=== PATIENT | female | born 1930 | race Caucasian/White ===

== ENCOUNTER 2017-03-19 06:48 | Day surgery (SDC) | payer MEDICARE, OTHER ==
--- NOTE | 2017-03-13 09:47 | EKG REPORT ---
SEVERITY:- ABNORMAL ECG - SINUS RHYTHM LEFT VENTRICULAR HYPERTROPHY NONSPECIFIC T ABNORMALITIES, INFERIOR LEADS : Confirmed by: Lexy Hinson 13-Mar-2017 09:46:47
[2017-03-13 09:48] LABS: HEMATOCRIT 32.9 % (36.0-47.0); HGB HCT DIFFERENCE 0.1; MEAN CORPUSCULAR HEMOGLOBIN 27.9 pg (27.0-33.4); MEAN CORPUSCULAR HGB CONC 33.5 g/dL (32.0-36.0); MEAN CORPUSCULAR VOLUME 83 fl (80-97); RED BLOOD COUNT 3.95 10^6/uL (3.72-5.28); RED CELL DISTRIBUTION WIDTH 14.8 % (11.5-14.0); WHITE BLOOD COUNT 4.5 10^3/uL (4.0-10.5)
[2017-03-13 10:18] LABS: ANION GAP 13 (5-19); BLOOD UREA NITROGEN 16 mg/dL (7-20); CALCIUM 10.2 mg/dL (8.4-10.2); CARBON DIOXIDE 25 mmol/L (22-30); CHLORIDE 105 mmol/L (98-107); CREATININE RESULT 0.96 mg/dL (0.52-1.25); GLUCOSE 137 mg/dL (75-110); POTASSIUM 4.5 mmol/L (3.6-5.0); SODIUM 142.8 mmol/L (137-145)
[~2017-03-19 06:48] MED LIST: CEFAZOLIN 1 GM/D5W RTU 1 GM/50 ML RTUPB IV PRN; LIDOCAINE 0.5% INJ-PF (5 MG/ML) 50 ML SDV INJ PRN; LIDOCAINE 1%/EPINEPHRINE INJ 20 ML VIAL ONE; MICROFIBRILLAR COLLAGEN 1 GM PACK ONE; RINGERS SOLUTION,LACTATED 1,000 ML IV PRN
[2017-03-19] MEDS ORDERED: DEXAMETHASONE SOD PHOSPHATE INJ 4 MG/1 ML VIAL ONE (08:24)
[2017-03-19] MEDS ORDERED: ONDANSETRON HCL INJ/PF 4 MG/2 ML SDV ONE (08:24)
[2017-03-19] MEDS ORDERED: SUCCINYLCHOLINE CHLORIDE INJ 200 MG/10 ML VIAL ONE (08:24)
[2017-03-19] MEDS ORDERED: PROPOFOL INJ 200 MG/20 ML VIAL IV ONE (10:26)
[2017-03-19] MEDS ORDERED: ACETAMINOPHEN 100 ML IV ONE (10:26)
[2017-03-19] MEDS ORDERED: FENTANYL CITRATE INJ/PF 100 MCG/2 ML AMPUL ONE (10:26)
[2017-03-19] MEDS ORDERED: MIDAZOLAM 2 MG/2 ML INJ ONE (10:26)
[2017-03-19] MEDS ORDERED: FENTANYL CITRATE INJ/PF 100 MCG/2 ML AMPUL IV PRN ×3 (11:07)
[2017-03-19] MEDS ORDERED: DIPHENHYDRAMINE HCL 50 MG/ML VIAL IV PRN (11:07)
[2017-03-19] MEDS ORDERED: PROMETHAZINE HCL INJ 25 MG/1 ML VIAL IV PRN ×2 (11:07)
[2017-03-19] MEDS ORDERED: OXYCODONE-ACETAMINOPHEN 5-325 MG TABLET PO PRN ×3 (11:07→11:33)
[2017-03-19] MEDS ORDERED: MORPHINE SULFATE 10 MG/ML INJ IV PRN ×2 (11:07→11:31)
[2017-03-19] MEDS ORDERED: MEPERIDINE HCL/PF INJ 25 MG/1 ML DISP.SYRIN IV PRN (11:07)
--- NOTE | 2017-03-19 11:30 | PDOC DISCHARGE SUMMARY ---
Discharge Summary (SDC) - Discharge Final Diagnosis: right breast cancer Date of Surgery: 03/19/17 Discharge Date: 03/19/17 Condition: Good Treatment or Instructions: [facility] [address] [place] [id number] Care Instructions Following Your Partial Mastectomy Activities: Resume normal activities when you feel comfortable. It is best to remain as active as possible to speed your recovery. It is common to experience some fatigue after surgery and you may find that short naps are helpful. Avoid strenuous activity such as weight lifting, tennis, etc at your surgical site for two weeks. Perform gentle arm exercises daily and do not favor your operative arm to due increased risk of mobility issues postoperatively. No driving for 7 days after surgery. Do not drive if you are taking pain medication other than Tylenol or Ibuprofen. No swimming, tub baths or soaking in a hot tub for 4 weeks. There are no dietary restrictions. Do not smoke as this impairs wound healing. Surgical Site care: Remove your dressing 48 hours after surgery. Leave the white paper tapes underneath in place. You may shower after removing the dressing to include washing the wound with soap and water using your hands. Do not scrub the incision. Pat the area dry with a towel. You do not need to recover the wound although some patients find that they feel more comfortable using a light dressing for a few days to absorb any minimal drainage which may occur. Many patients also find that keeping a dressing around the drain exit site is helpful to absorb any drainage which may leak around the tubing. If you use a dressing in this manner change it at least every day. Do not use heating pad or apply an ice pack to the operative site. You may apply deodorant if you are careful to avoid getting it on the wound itself. Empty the bulbs attached to the drain every 12 hours and measure the fluid output separately from each drain. Please also strip each drain each time you empty it to prevent clogging. Keep a record of the output and bring this record with you each time you come to the office for postoperative care. A drain is ready to be removed when its output is 30 mL per 24 hours per drain for 2 consecutive drains. Please call the office to inform our staff that you need to come in for drain removal. Both drains do not need to be ready to be removed at the same time in order to come to the office. Medications: Take Motrin (ibuprofen) 600 mg to 800 mg every 8 hours around the clock. You may taper this medication as you experience less pain. Take narcotic pain control such as Tylenol #3 or Percocet one to tablets every six hours as needed for breakthrough pain. Do not take over the counter Tylenol if you are taking either Tylenol #3 or Percocet. Again, you can not drive while taking narcotic pain medication. Resume all of your normal prescription medications after your surgery unless instructed otherwise. You may experience constipation after surgery while taking pain medications. If using a narcotic on a regular basis, take a stool softener such as Colace twice a day. It is helpful to stay hydrated by drinking lots of fluids. Walking is also helpful and is good exercise after surgery. If you need extra help, use Milk of Magnesia according to the directions on the package. Follow-up: Call our office at to make a follow-up appointment in 10-14 days. Your doctor will call to discuss the pathology report with you as soon as it is available. Concerns: If you had a sentinel lymph node biopsy with your mastectomy, your urine may have a greenish discoloration. This is normal as the blue dye slowly leaves your system. If you notice significant leakage around the drains, this is not normal. The drains may be clogged. Please call our office to come in immediately for the drains to be checked. Some bruising may occur and will go away over time. If you have a fever of 101.5 or greater, chills, redness at the incision site, excessive drainage from your wound or severe pain not relieved by pain medication, call your doctor. A physician is available 24 hours a day 7 days a week in addition to regular office hours. If problems arise after normal office hours please call the hospital at . Please call if you have any questions or concerns. Discharge Diet: As Tolerated Discharge Activity: Activity As Tolerated Home Care Assistance: None Needed Report the Following to Your Physician Immediately: Shortness of Breath, Increase in Pain, Fever over 101 Degrees - please teACH DRAIN CARE
[2017-03-19] MEDS ORDERED: ONDANSETRON HCL INJ/PF 4 MG/2 ML SDV IV PRN (11:31)
[2017-03-19] MEDS ORDERED: RINGERS SOLUTION,LACTATED 1,000 ML IV PRN (11:31)
[2017-03-19 14:27] VITALS: BP 129/69
--- NOTE | 2017-03-20 10:43 | OPERATIVE REPORT E ---
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 OPERATION: 1. Focus ultrasound of the right breast. 2. Right breast extended central lumpectomy including nipple-areolar complex. 3. Drain placement right breast. SURGEON: IRVIN JO M.D. CAUSTIC LIQUOR MAKER: SUZY HOWE ANESTHESIA: General via laryngeal mask airway. COMPLICATIONS: None. ESTIMATED BLOOD LOSS: Scant. DRAINS: One large Carter TISSUE REMOVED OR ALTERED: Central lumpectomy specimen and posterior cavity margin as separate specimen. PROCEDURE: Patient was seen in the preop holding area, and the right breast was marked. She was then taken to the operating room where general anesthesia was induced via LMA. Right arm was abducted, right breast and axilla prepped and draped in a sterile fashion. Surgical plan and surgical time-out were conducted. Findings were significant for palpable large right upper outer quadrant breast tumor with dimpling of the skin. Of note, the patient had active bloody nipple discharge. Given the large size of the tumor and now bloody nipple discharge, I felt that complete extirpation of the malignancy would require an extended lumpectomy including the central areola and nipple complex. For that reason markings were made on the skin, skin anesthetized with 1% lidocaine with epinephrine, and a large ellipse of tissue was then made with a #10 blade encompassing the dimpled skin superiorly and laterally, as well as the areolar complex inferiorly and medially. The level of dissection was taken down to the deep retromammary fat in a circumferential fashion. The specimen was labeled with a suture in the superior position. This specimen was sent, including skin, nipple-areolar complex, and tumor in situ, to pathology and evaluated by Dr. Elmo Barlow. He was concerned that the posterior resection margin was close to the malignancy. Therefore, we scrubbed back in and resected the posterior cavity margin in the vicinity of the tumor above the pectoralis muscle. This thin flimsy piece of fatty tissue was oriented such that the short suture was in the superior position, the long suture in the lateral position. This was sent to Pathology for permanent analysis. Hemostasis felt to be excellent. A large Carter drain was placed into the inferior mammary fold, and the breast closed with a running 2-0 Vicryl suture. Skin closed with skin glue. The patient tolerated the procedure well, extubated, and taken to recovery in stable condition. DICTATING PHYSICIAN: IRVIN JO M.D. [id number] Y#: [id number] ID: [id number] JOB#: [id number] ACCT: [id number] cc:IRVIN JO M.D. > MTDD
== END 2017-03-19 14:20 | disposition home or self-care (01) ==
LOC: OROUT 06:48
PROVIDERS: ATTEND Surgery
PROC: 0HBT0ZZ Excision of Right Breast, Open Approach (ICD-10-PCS; principal; 2017-03-19 09:00)
DX: C50.911 Malignant neoplasm of unspecified site of right female breast (principal); R00.0 Tachycardia, unspecified; I10 Essential (primary) hypertension; E11.9 Type 2 diabetes mellitus without complications; E03.9 Hypothyroidism, unspecified; Z79.899 Other long term (current) drug therapy; Z79.84 Long term (current) use of oral hypoglycemic drugs; I49.9 Cardiac arrhythmia, unspecified
CPT/HCPCS: 19301; 93005; 36415; 82962; 85027; 80048; 88307 ×2; 88329; 93010; J2250; J0690; J1100; J3010; J3490; J0330; J2405; J2704; J0131; 400

== ENCOUNTER → 2018-10-21 | Outpatient (CLI) | payer MEDICARE, OTHER ==
--- NOTE | 2018-10-21 14:23 | RADIOLOGY REPORT (SQ) ---
EXAM DESCRIPTION: CT CHEST WITHOUT COMPLETED DATE/TIME: 10/21/2018 1:47 pm REASON FOR STUDY: J84.9 INTERSTITIAL PULMONARY DISEASE, UNSPECIFIED J84.9 INTERSTITIAL PULMONARY DI SEASE, UNSPECIFIED COMPARISON: 05/08/2016. TECHNIQUE: CT scan performed of the chest without intravenous contrast. Images reviewed with lung, soft tissue and bone windows. Reconstructed coronal and sagittal MPR images reviewed. All images st ored on PACS. All CT scanners at this facility use dose modulation, iterative reconstruction, and/or weight based d osing when appropriate to reduce radiation dose to as low as reasonably achievable (ALARA). [facility]: Dose Right [facility]: CareDose [facility]: Dose Right [facility]: Teradose 4D [facility]: [employer] RADIATION DOSE: CT Rad equipment meets quality standard of care and radiation dose reduction techniq ues were employed. CTDIvol: 4.9 mGy. DLP: 161 mGy-cm. mGy. LIMITATIONS: No technical limitations. FINDINGS: LUNGS AND PLEURA: Chronic interstitial scarring, primarily in the lower lobes. No masses, infiltrates, or pneumothorax. No ground-glass opacities. No pleural effusions or pleural calcifica tions. HILAR AND MEDIASTINAL STRUCTURES: No identified masses or abnormal nodes. No obvious aneurysm. HEART AND VASCULAR STRUCTURES: No aneurysm. No pericardial effusion. UPPER ABDOMEN: No significant findings. Limited exam. THYROID AND OTHER SOFT TISSUES: No masses. No adenopathy. BONES: No significant finding. Chronic changes in the spine with old wedge deformities. HARDWARE: None in the chest. OTHER: No other significant findings. IMPRESSION: CHRONIC PARENCHYMAL SCARRING. SIMILAR TO THE PRIOR STUDY. NO SIGNIFICANT CHANGE. NO A CUTE FINDINGS. TECHNICAL DOCUMENTATION: JOB ID: [id number] Quality ID # [id number]: Final reports with documentation of one or more dose reduction techniques (e.g., Au tomated exposure control, adjustment of the mA and/or kV according to patient size, use of iterative reconstruction technique) 2010 [employer]- All Rights Reserved Reading location - IP/workstation name: [email or web address]
== END ==
LOC: RAD 14:07
PROVIDERS: ATTEND Internal Medicine
DX: J84.9 Interstitial pulmonary disease, unspecified (principal)
CPT/HCPCS: 71250

== ENCOUNTER → 2019-03-22 | Outpatient (CLI) | payer MEDICARE, OTHER ==
--- NOTE | 2019-03-22 12:40 | RADIOLOGY REPORT (SQ) ---
EXAM DESCRIPTION: ELBOW RIGHT >2 VIEWS COMPLETED DATE/TIME: 03/22/2019 12:30 pm REASON FOR STUDY: PAIN IN RIGHT SHOULDER/PAIN IN RIGHT ELBOW M25.511 PAIN IN RIGHT SHOULDER M25.521 PAIN IN RIGHT ELBOW COMPARISON: None. NUMBER OF VIEWS: Four views. TECHNIQUE: AP, lateral, and both oblique radiographic images acquired of the right elbow. LIMITATIONS: None. FINDINGS: MINERALIZATION: Normal. BONES: No acute fracture or dislocation. No worrisome bone lesions. JOINT: No effusion. SOFT TISSUES: Small well corticated ossific density in the soft tissues adjacent to the medial humer al condyle may be related prior remote trauma. OTHER: No other significant finding. IMPRESSION: 1. No acute osseous findings. TECHNICAL DOCUMENTATION: JOB ID: [id number] [employer]- All Rights Reserved Reading location - IP/workstation name: [email or web address]
--- NOTE | 2019-03-22 12:42 | RADIOLOGY REPORT (SQ) ---
EXAM DESCRIPTION: SHOULDER RIGHT 2 OR MORE VIEWS COMPLETED DATE/TIME: 03/22/2019 12:30 pm REASON FOR STUDY: PAIN IN RIGHT SHOULDER/PAIN IN RIGHT ELBOW M25.511 PAIN IN RIGHT SHOULDER M25.521 PAIN IN RIGHT ELBOW COMPARISON: None. NUMBER OF VIEWS: Three views. TECHNIQUE: Internal rotation, external rotation, and Y view images acquired of the right shoulder. LIMITATIONS: None. FINDINGS: MINERALIZATION: Normal. BONES: No acute fracture or dislocation. No worrisome bone lesions. JOINTS: No dislocation. VISUALIZED LUNGS AND RIBS: No pneumothorax. No rib fracture. SOFT TISSUES: No radiopaque foreign body. OTHER: No other significant finding. IMPRESSION: 1. No acute osseous findings. TECHNICAL DOCUMENTATION: JOB ID: [id number] [employer]- All Rights Reserved Reading location - IP/workstation name: [email or web address]
== END ==
LOC: OD 11:25
PROVIDERS: ATTEND Internal Medicine
DX: M25.511 Pain in right shoulder (principal); M25.521 Pain in right elbow